=== PATIENT | female | born 1975 | race African-American/Black ===

== ENCOUNTER 2016-09-16 09:12 | Emergency (ER) | payer MEDICAID ==
[2016-09-16] MEDS ORDERED: ONDANSETRON HCL INJ/PF 4 MG/2 ML SDV IV ONE (12:04)
[2016-09-16] MEDS ORDERED: NORMAL SALINE 1000 ML 1,000 ML IV ONE (12:04)
[2016-09-16] MEDS ORDERED: KETOROLAC TROMETHAMINE INJ/PF 30 MG/1 ML SDV IV ONE (12:10)
--- NOTE | 2016-09-16 12:15 | ER Document Report ---
ED General - General Chief Complaint: Abdominal Pain Stated Complaint: STOMACH PAIN Mode of Arrival: Ambulatory Information source: Patient Notes: 41-year-old female presents with complaints of intermittent abdominal pain over the past few weeks. Patient admits to nausea TRAVEL OUTSIDE OF THE [place] IN LAST 30 DAYS: No - HPI Onset: Other Onset/Duration: Intermittent Quality of pain: Achy Severity: Mild Pain Level: 1 Associated symptoms: Nausea Exacerbated by: Denies Relieved by: Denies Similar symptoms previously: Yes Recently seen / treated by doctor: No - Related Data Allergies/Adverse Reactions: milk [Milk] Adverse Reaction (Intermediate, Verified 09/16/16 09:31) lactose intolerant chocolate flavor Adverse Reaction (Verified 09/16/16 09:31) Hives Past Medical History - Social History Smoking Status: Never Smoker Cigarette use (# per day): No Chew tobacco use (# tins/day): No Smoking Education Provided: No Frequency of alcohol use: None Drug Abuse: None Family History: CAD, CVA, DM, Hyperlipidemia, Hypertension, Malignancy, Thyroid Disfunction Patient has suicidal ideation: No Patient has homicidal ideation: No - Past Medical History Cardiac Medical History: Reports: Hx Hypertension - "Its been good lately" Denies: Hx Congestive Heart Failure, Hx Coronary Artery Disease, Hx Heart Attack Pulmonary Medical History: Reports: Hx Asthma - only when Denies: Hx Bronchitis, Hx COPD, Hx Pneumonia Neurological Medical History: Denies: Hx Cerebrovascular Accident, Hx Seizures Endocrine Medical History: Denies: Hx Diabetes Mellitus Type 2 Renal/ Medical History: Denies: Hx Peritoneal Dialysis GI Medical History: Denies: Hx Gastritis, Hx Gastroesophageal Reflux Disease Musculoskeltal Medical History: Reports Hx Arthritis - rheumatoid LEFT hip/knee Skin Medical History: Denies Hx MRSA Psychiatric Medical History: Reports: Hx Depression Infectious Medical History: Denies: Hx MRSA Past Surgical History: Reports: Hx Gynecologic Surgery - ovarian surgery, Hx Hysterectomy, Hx Orthopedic Surgery - right foot - Immunizations Immunizations up to date: Yes Hx Diphtheria, Pertussis, Tetanus Vaccination: No - unsure Review of Systems - Review of Systems Notes: REVIEW OF SYSTEMS: CONSTITUTIONAL : Denies fever, chills, or sweats. Denies recent illness. EENT: Denies eye, ear, throat, or mouth pain or symptoms. Denies nasal or sinus congestion or discharge. Denies throat, tongue, or mouth swelling or difficulty swallowing. CARDIOVASCULAR: Denies chest pain. Denies palpitations or racing or irregular heart beat. Denies ankle edema. RESPIRATORY: Denies cough, cold, or chest congestion. Denies shortness of breath, difficulty breathing, or wheezing. GASTROINTESTINAL: Admits to abdominal pain nausea GENITOURINARY: Denies difficulty urinating, painful urination, burning, frequency, blood in urine, or discharge. FEMALE GENITOURINARY: Denies vaginal bleeding, heavy or abnormal periods, irregular periods. Denies vaginal discharge or odor. MUSCULOSKELETAL: Denies back or neck pain or stiffness. Denies joint pain or swelling. SKIN: Denies rash, lesions or sores. HEMATOLOGIC : Denies easy bruising or bleeding. LYMPHATIC: Denies swollen, enlarged glands. NEUROLOGICAL: Denies confusion or altered mental status. Denies passing out or loss of consciousness. Denies dizziness or lightheadedness. Denies headache. Denies weakness or paralysis or loss of use of either side. Denies problems with gait or speech. Denies sensory loss, numbness, or tingling. Denies seizures. PSYCHIATRIC: Denies anxiety or stress. Denies depression, suicidal ideation, or homicidal ideation. ALL OTHER SYSTEMS REVIEWED AND NEGATIVE. Dictation was performed using [employer] voice recognition software PHYSICAL EXAMINATION: GENERAL: Well-appearing, well-nourished and in no acute distress. HEAD: Atraumatic, normocephalic. EYES: Pupils equal round and reactive to light, extraocular movements intact, conjunctiva are normal. ENT: Nares patent, oropharynx clear without exudates. Moist mucous membranes. NECK: Normal range of motion, supple without lymphadenopathy LUNGS: Breath sounds clear to auscultation bilaterally and equal. No wheezes rales or rhonchi. HEART: Regular rate and rhythm without murmurs ABDOMEN: Soft, tender in the right upper quadrant without guarding or rebound Female : deferred Musculoskeletal: Normal range of motion, no pitting or edema. No cyanosis. NEUROLOGICAL: Cranial nerves grossly intact. Normal speech, normal gait. Normal sensory, motor exams PSYCH: Normal mood, normal affect. SKIN: Warm, Dry, normal turgor, no rashes or lesions noted. Physical Exam - Vital signs Vitals: Temp Pulse Resp BP Pulse Ox 99.0 F 82 16 130/89 H 97 09/16/16 09:31 09/16/16 09:31 09/16/16 09:31 09/16/16 09:31 09/16/16 09:31 Course - Re-evaluation Re-evalutation: 09/16/16 12:15 Patient will be sent for ultrasound lab are pending otherwise well-appearing in no distress 09/16/16 15:22 Ultrasound initially concerning for a thrombus however a CTA was performed which noted no acute abnormality. Patient will be discharged home to follow-up with GI After performing a Medical Screening Examination, I estimate there is LOW risk for ACUTE APPENDICITIS, BOWEL OBSTRUCTION, ACUTE CHOLECYSTITIS, PERFORATED DIVERTICULITIS, INCARCERATED HERNIA, PANCREATITIS, PELVIC INFLAMMATORY DISEASE, PERFORATED ULCER, ECTOPIC , or TUBO-OVARIAN ABSCESS, thus I consider the discharge disposition reasonable. Also, there is no evidence or peritonitis , sepsis, or toxicity. The patient and I have discussed the diagnosis and risks , and we agree with discharging home with close follow-up with the understanding that symptoms and presentations can change. We also discussed returning to the Emergency Department immediately if new or worsening symptoms occur. We have discussed the symptoms which are most concerning (e.g., bloody stool, fever, changing or worsening pain, vomiting) that necessitate immediate return. - Vital Signs Vital signs: Temp Pulse Resp BP Pulse Ox 99.0 F 82 16 130/89 H 97 09/16/16 09:31 09/16/16 09:31 09/16/16 09:31 09/16/16 09:31 09/16/16 09:31 - Laboratory Result Diagrams: 09/16/16 12:30 09/16/16 13:25 Laboratory results interpreted by me: 09/16/16 09/16/16 09/16/16 12:30 13:02 13:25 MCV 75 L MCH 24.0 L MCHC 31.8 L RDW 16.1 H Sodium 147.3 H Urine Urobilinogen 4.0 H - Diagnostic Test Radiology reviewed: Image reviewed, Reports reviewed Discharge - Discharge Clinical Impression: Nausea Abdominal pain Qualifiers: Abdominal location: right upper quadrant Qualified Code(s): R10.11 - Right upper quadrant pain Condition: Stable Disposition: HOME, SELF-CARE Instructions: Abdominal Pain ([facility]) Prescriptions: Hydrocodone/Acetaminophen [[place] 5-325 mg Tablet] 1 tab PO Q6 #10 tablet Ondansetron HCl [Zofran] 8 mg PO Q6 #10 tablet Referrals: NELSON WATTS MD [Primary Care Provider] - Follow up tomorrow
[2016-09-16 13:02] LABS: ABSOLUTE LYMPHOCYTES (AUTO) 2.1 10^3/uL (0.5-4.7); ABSOLUTE MONOCYTES (AUTO) 0.9 10^3/uL (0.1-1.4); ABSOLUTE NEUT (AUTO) 4.9 10^3/uL (1.7-8.2); BASOPHILS % (AUTO) 0.2 % (0-2); EOSINOPHILS % (AUTO) 0.5 % (0-6); HEMATOCRIT 37.6 % (36.0-47.0); HGB HCT DIFFERENCE -1.6; LYMPHOCYTES % (AUTO) 26.8 % (13-45); MEAN CORPUSCULAR HGB CONC 31.8 g/dL (32.0-36.0); MEAN CORPUSCULAR VOLUME 75 fl (80-97); MONOCYTES % (AUTO) 11.4 % (3-13); RED BLOOD COUNT 4.99 10^6/uL (3.72-5.28); RED CELL DISTRIBUTION WIDTH 16.1 % (11.5-14.0); SEGMENTED NEUTROPHILS % (AUTO) 61.1 % (42-78)
[2016-09-16 14:05] LABS: ALANINE AMINOTRANSFERASE 24 U/L (9-52); ALBUMIN 4.1 g/dL (3.5-5.0); ALKALINE PHOSPHATASE 84 U/L (38-126); ANION GAP 15 (5-19); ASPARTATE AMINO TRANSFERASE 21 U/L (14-36); BILIRUBIN,DIRECT 0.2 mg/dL (0.0-0.4); BILIRUBIN,TOTAL 0.5 mg/dL (0.2-1.3); BLOOD UREA NITROGEN 13 mg/dL (7-20); CALCIUM 9.3 mg/dL (8.4-10.2); CARBON DIOXIDE 26 mmol/L (22-30); CHLORIDE 106 mmol/L (98-107); CREATININE RESULT 0.68 mg/dL (0.52-1.25); GLUCOSE 78 mg/dL (75-110); LIPASE 37.3 U/L (23-300); POTASSIUM 4.1 mmol/L (3.6-5.0); SODIUM 147.3 mmol/L (137-145); TOTAL PROTEIN 7.7 g/dL (6.3-8.2)
[2016-09-16 14:47] LABS: APPEARANCE,URINE CLEAR; BILIRUBIN,URINE NEGATIVE (NEGATIVE); GLUCOSE, URINE NEGATIVE (NEGATIVE); KETONES,URINE NEGATIVE (NEGATIVE); LEUKOCYTE ESTERASE,URINE NEGATIVE (NEGATIVE); NITRITE,URINE NEGATIVE (NEGATIVE); PROTEIN,URINE NEGATIVE (NEGATIVE); URINE SPECIFIC GRAVITY 1.017
[2016-09-16 16:05] VITALS: BP 138/81
== END 2016-09-16 15:39 | disposition home or self-care (01) ==
LOC: ER 09:12
DX: R10.11 Right upper quadrant pain (principal); R11.0 Nausea
CPT/HCPCS: 99284; 96374; 96375; 36415; 83690; 85025; 80053; 81001; 76705; 74174; J1885; J2405

== ENCOUNTER 2016-10-30 17:05 | Emergency (ER) | payer MEDICAID ==
[2016-10-30] MEDS ORDERED: TETRACAINE HCL 0.5% OPH SOLN 2 ML OD ONE (18:38)
[2016-10-30] MEDS ORDERED: TETRACAINE HCL 0.5% OPH SOLN 2 ML OS ONE (18:41)
--- NOTE | 2016-10-30 18:49 | ER Document Report ---
HPI - HPI Patient complains to provider of: left eye pain Onset/Duration: Sudden Quality of pain: Achy Pain Level: 3 Context: She presents emergency department with left eye pain. 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 She reports pain when she opens and closes her eye. No drainage. She does not wear contacts. 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 Lives with: Family Family History: CAD, CVA, DM, Hyperlipidemia, Hypertension, Malignancy, Thyroid Disfunction Patient has suicidal ideation: No Patient has homicidal ideation: No - Past Medical History Cardiac Medical History: Reports: Hx Hypertension - "Its been good lately" Denies: Hx Congestive Heart Failure, Hx Coronary Artery Disease, Hx Heart Attack Pulmonary Medical History: Reports: Hx Asthma - only when Denies: Hx Bronchitis, Hx COPD, Hx Pneumonia Neurological Medical History: Denies: Hx Cerebrovascular Accident, Hx Seizures Endocrine Medical History: Denies: Hx Diabetes Mellitus Type 2 Renal/ Medical History: Denies: Hx Peritoneal Dialysis GI Medical History: Denies: Hx Gastritis, Hx Gastroesophageal Reflux Disease Musculoskeltal Medical History: Reports Hx Arthritis - rheumatoid LEFT hip/knee Skin Medical History: Denies Hx MRSA Psychiatric Medical History: Reports: Hx Depression Infectious Medical History: Denies: Hx MRSA Past Surgical History: Reports: Hx Gynecologic Surgery - ovarian surgery, Hx Hysterectomy, Hx Orthopedic Surgery - right foot - Immunizations Immunizations up to date: Yes Hx Diphtheria, Pertussis, Tetanus Vaccination: No - unsure Vertical Provider Document - CONSTITUTIONAL Agree With Documented VS: Yes Exam Limitations: No Limitations General Appearance: WD/WN, No Apparent Distress - Patient playing on her cell phone the entire time I'm talking to her. - INFECTION CONTROL TRAVEL OUTSIDE OF THE [place] IN LAST 30 DAYS: No - HEENT HEENT: Atraumatic, Normocephalic, PERRLA. negative: Conjuctival Injection - NECK Neck: Supple - RESPIRATORY Respiratory: Breath Sounds Normal, No Respiratory Distress O2 Sat by Pulse Oximetry: 100 - CARDIOVASCULAR Cardiovascular: Regular Rate - MUSCULOSKELETAL/EXTREMETIES Musculoskeletal/Extremeties: SHANNAN FRAGA - NEURO Level of Consciousness: Awake, Alert, Appropriate Motor/Sensory: No Motor Deficit - DERM Integumentary: Warm, Dry Course - Re-evaluation Re-evalutation: 10/30/16 18:51 Patient instructed on pending eye exam 10/30/16 19:03 Patient instructed on erythromycin ointment. Patient also instructed to follow up with ophthalmology for recheck. - Vital Signs Vital signs: Temp Pulse Resp BP Pulse Ox 98.3 F 84 16 161/97 H 100 10/30/16 17:08 10/30/16 17:08 10/30/16 17:08 10/30/16 17:08 10/30/16 17:08 Procedures - Eye Procedure Left Eye Irrigated w/ Saline (ccs): 10 Alcaine Drops Administered: Yes - TETRACAINE Fluorescein applied: Left Slit lamp used: No Notes: 10/30/16 19:03 Tetracaine applied to left eye. Patient reports immediate relief of irritation after tetracaine. Discharge - Discharge Clinical Impression: Irritation of left eye, Elevated blood pressure reading Condition: Stable Disposition: HOME, SELF-CARE Instructions: Erythromycin ([facility]) Additional Instructions: *You have been evaluated for left eye irritation *Use eye ointment as prescribed *Tylenol as indicated for pain *Good hand washing- *Follow up with an crab meat processor for recheck within 5 days *Return to ED for worsening condition, changes, needs Monitor your blood pressure. Your blood pressure was elevated today. This may be because you were anxious, in pain or because you need medication. It is important to follow up with your primary care provider for full evaluation. Prescriptions: Erythromycin Base [Erythromycin 0.5% Oph Ointment 3.5 gm] 1 applic OS TID #1 tube Forms: Elevated Blood Pressure Referrals: NELSON WATTS MD [Primary Care Provider] - Follow up in 3-5 days
[2016-10-30 19:38] VITALS: BP 157/98
== END 2016-10-30 19:24 | disposition home or self-care (01) ==
LOC: ER 17:05
DX: H57.12 Ocular pain, left eye (principal); I10 Essential (primary) hypertension; Z90.710 Acquired absence of both cervix and uterus
CPT/HCPCS: 99283

== ENCOUNTER 2017-01-27 20:48 | Emergency (ER) | payer SELFPAY ==
--- NOTE | 2017-01-27 22:32 | ER Document Report ---
ED Hand/Wrist Injury - General Mode of Arrival: Ambulatory Information source: Patient TRAVEL OUTSIDE OF THE [place] 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 Patient states she felt a snap/pop when the injury occurred. Patient denies any previous injury to this finger. Patient has no medical problems and does not take any medications regularly. Patient has not taken any pain medication and does not want any Tylenol or Ibuprofen. PCP Dr. Quinteros ([facility]) - Related Data Allergies/Adverse Reactions: milk [Milk] Adverse Reaction (Intermediate, Verified 10/30/16 17:07) lactose intolerant chocolate flavor Adverse Reaction (Verified 10/30/16 17:07) Hives Past Medical History - General Information source: Patient - Social History Smoking Status: Unknown if Ever Smoked Family History: CAD, CVA, DM, Hyperlipidemia, Hypertension, Malignancy, Thyroid Disfunction Patient has suicidal ideation: No Patient has homicidal ideation: No - Past Medical History Cardiac Medical History: Reports: Hx Hypertension - "Its been good lately" Pulmonary Medical History: Reports: Hx Asthma - only when Musculoskeltal Medical History: Reports Hx Arthritis - rheumatoid LEFT hip/knee Psychiatric Medical History: Reports: Hx Depression Past Surgical History: Reports: Hx Gynecologic Surgery - ovarian surgery, Hx Hysterectomy, Hx Orthopedic Surgery - right foot - Immunizations Immunizations up to date: Yes Hx Diphtheria, Pertussis, Tetanus Vaccination: No - unsure Review of Systems - Review of Systems Constitutional: No symptoms reported EENT: No symptoms reported Cardiovascular: No symptoms reported Respiratory: No symptoms reported Gastrointestinal: No symptoms reported Genitourinary: No symptoms reported Female Genitourinary: No symptoms reported Musculoskeletal: See HPI Skin: No symptoms reported Hematologic/Lymphatic: No symptoms reported Neurological/Psychological: No symptoms reported -: Yes All other systems reviewed and negative Physical Exam - Vital signs Interpretation: Hypertensive - Vital signs Vitals: Temp Pulse Resp BP Pulse Ox 98.5 F 70 18 161/96 H 100 01/27/17 20:55 01/27/17 20:55 01/27/17 20:55 01/27/17 20:55 01/27/17 20:55 - Notes Notes: GENERAL: Alert, interacts well. No acute distress. HEAD: Normocephalic, atraumatic. EYES: Appear normal. Pupils equal, round, and reactive to light. ENT: Moist mucus membranes, tongue midline. NECK: Full range of motion. Supple. Trachea midline. LUNGS: Clear to auscultation bilaterally, no wheezes, rales, or rhonchi. No respiratory distress. HEART: Regular rate and rhythm. No murmurs, gallops, or rubs. ABDOMEN: Soft, non-tender. Non-distended. Normal bowel sounds. EXTREMITIES: Moves all 4 extremities spontaneously. Normal strength. No edema. Pain at the base of the right thumb. Small subungual hematoma which is less than 5% of the right thumb nail bed. Good flexion-extension, motor function is normal, no obvious lacerations or abrasions, no bony tenderness at the wrist, hand, forearm, or elbow. Radial, ulnar, axillary, and median nerve are intact. NEUROLOGICAL: Alert and oriented x3. Normal speech. No focal neurological deficits. GSC 15. PSYCH: Normal affect, normal mood. SKIN: Warm, dry, normal turgor. No rashes or lesions noted. (MEIR GALINDO) Discharge - Discharge Clinical Impression: Acute right thumb sprain Condition: Stable Disposition: HOME, SELF-CARE Additional Instructions: Sprain thumb Your injury is a sprain. A sprain results from stretching or tearing of the ligaments, usually from a twisting injury. The ligaments will require time and protection in order to heal properly. Many sprains are quite disabling and should be taken seriously. The usual initial treatment of sprains is cold packs, elevation, and rest of the injured area. Your physician has assessed the seriousness of your ligament injury, and has outlined a treatment plan. Understand that this treatment may change, depending on how you progress. If a re-examination was recommended, it is important that you follow up as instructed. Call the doctor any time if there is severe pain, numbness, or loss of function in the injured area. Referrals: NELSON QUINTEROS MD [Primary Care Provider] - (Follow-up in 5-7 days ice for 48 hours elevation, Motrin for pain and return for increasing worsening or new symptoms) Scribe Attestation: 01/27/17 23:12 I personally performed the services described in the documentation reviewed the documentation recorded by my scribe in my presence and it accurately and completely records my words and actions (MISTY DEL VALLE) Scribe Documentation - Scribe Written by Scribe:: Candace Tapia 01/27/17 23:19 acting as scribe for :: Oliverio
--- NOTE | 2017-01-27 22:43 | RADIOLOGY REPORT (SQ) ---
EXAM DESCRIPTION: FINGER RIGHT COMPLETED DATE/TIME: 01/27/2017 10:35 pm REASON FOR STUDY: Pain s/p injury COMPARISON: None. NUMBER OF VIEWS: Three views. TECHNIQUE: AP, lateral, and oblique images acquired of the right thumb. LIMITATIONS: None. FINDINGS: MINERALIZATION: Normal. BONES: No acute fracture or dislocation. No worrisome bone lesions. SOFT TISSUES: No soft tissue swelling. No foreign body. OTHER: No other significant finding. IMPRESSION: NO RADIOGRAPHIC EVIDENCE OF ACUTE INJURY. COMMENT: SITE OF TRAUMA/COMPLAINT MARKED/STAMP COMPLETED: NO. TECHNICAL DOCUMENTATION: JOB ID: [id number] [employer]- All Rights Reserved
[2017-01-27 23:52] VITALS: BP 166/98
== END 2017-01-27 23:40 | disposition home or self-care (01) ==
LOC: ER 20:48
DX: S63.601A Unspecified sprain of right thumb, initial encounter (principal); W20.8XXA Other cause of strike by thrown, projected or falling object, initial encounter; Y92.210 Daycare center as the place of occurrence of the external cause; Y99.0 Civilian activity done for income or pay; Z91.011 Allergy to milk products; Z90.710 Acquired absence of both cervix and uterus
CPT/HCPCS: 99283

== ENCOUNTER 2017-03-26 16:26 | Emergency (ER) | payer SELFPAY ==
[2017-03-26 16:52] VITALS: BP 139/97
== END 2017-03-26 18:55 | disposition left against medical advice (07) ==
LOC: ER 16:26
DX: Z53.21 Procedure and treatment not carried out due to patient leaving prior to being seen by health care provider (principal)

== ENCOUNTER 2017-07-14 01:37 | Emergency (ER) | payer MEDICAID ==
[2017-07-14 01:46] VITALS: BP 169/106
--- NOTE | 2017-07-14 02:44 | ER Document Report ---
ED Medical Screen (RME) - General Chief Complaint: Back Pain Stated Complaint: BACK PAIN LEFT FOOT INJURY Time Seen by Provider: 07/14/17 02:38 Notes: Patient is a 41-year-old female comes emergency department for chief complaint of inversion injury to her left foot/ankle. She reports pain and swelling to those areas. She denies any fall, she denies any other injuries. She also states that she frequently has lower back pain, worse with movement, this is been going on for a long time. She normally just takes Tylenol for. She denies abdominal pain, dysuria, urinary frequency. She denies any fevers or chills. She takes no daily medications reportedly. TRAVEL OUTSIDE OF THE [place] IN LAST 30 DAYS: No - Related Data Allergies/Adverse Reactions: milk [Milk] Adverse Reaction (Intermediate, Verified 10/30/16 17:07) lactose intolerant chocolate flavor Adverse Reaction (Verified 10/30/16 17:07) Hives Past Medical History - Past Medical History Cardiac Medical History: Reports: Hx Hypertension - "Its been good lately" Denies: Hx Congestive Heart Failure, Hx Coronary Artery Disease, Hx Heart Attack Pulmonary Medical History: Reports: Hx Asthma - only when Denies: Hx Bronchitis, Hx COPD, Hx Pneumonia Neurological Medical History: Denies: Hx Cerebrovascular Accident, Hx Seizures Endocrine Medical History: Denies: Hx Diabetes Mellitus Type 2 Renal/ Medical History: Denies: Hx Peritoneal Dialysis GI Medical History: Denies: Hx Gastritis, Hx Gastroesophageal Reflux Disease Musculoskeltal Medical History: Reports Hx Arthritis - rheumatoid LEFT hip/knee Skin Medical History: Denies Hx MRSA Psychiatric Medical History: Reports: Hx Depression Infectious Medical History: Denies: Hx MRSA Past Surgical History: Reports: Hx Gynecologic Surgery - ovarian surgery, Hx Hysterectomy, Hx Orthopedic Surgery - right foot - Immunizations Immunizations up to date: Yes Hx Diphtheria, Pertussis, Tetanus Vaccination: No - unsure Physical Exam - Vital signs Vitals: Temp Pulse Resp BP Pulse Ox 98 F 90 16 169/106 H 99 07/14/17 01:40 07/14/17 01:40 07/14/17 01:40 07/14/17 01:40 07/14/17 01:40 - Extremities General lower extremity: Other - Tenderness over the left lateral foot and lateral malleolus, questionable swelling, normal range of motion, capillary refill, normal leg, knee, hip exam otherwise Course - Vital Signs Vital signs: Temp Pulse Resp BP Pulse Ox 98 F 90 16 169/106 H 99 07/14/17 01:40 07/14/17 01:40 07/14/17 01:40 07/14/17 01:40 07/14/17 01:40 Doctor's Discharge - Discharge Disposition: HOME, SELF-CARE
== END 2017-07-14 05:04 | disposition home or self-care (01) ==
LOC: ER 01:37
DX: Z53.21 Procedure and treatment not carried out due to patient leaving prior to being seen by health care provider (principal); S99.922A Unspecified injury of left foot, initial encounter; M54.5 Low back pain; M54.9 Dorsalgia, unspecified; X50.1XXA Overexertion from prolonged static or awkward postures, initial encounter
CPT/HCPCS: 99281; 99283

== ENCOUNTER 2018-01-28 22:05 | Emergency (ER) | payer MEDICAID ==
[2018-01-28 22:14] VITALS: BP 156/91
== END 2018-01-29 00:39 | disposition left against medical advice (07) ==
LOC: ER 22:05
DX: Z53.21 Procedure and treatment not carried out due to patient leaving prior to being seen by health care provider (principal)

== ENCOUNTER 2019-05-02 10:42 | Emergency (ER) | payer MEDICAID ==
[2019-05-02] MEDS ORDERED: BENZONATATE 100 MG CAPSULE PO ONE (12:03)
[2019-05-02] MEDS ORDERED: IPRATROPIUM/ALBUTEROL 0.5-2.5 MG/3 ML AMPUL NEB ONE (12:03)
--- NOTE | 2019-05-02 12:09 | ER Document Report ---
ED Medical Screen (RME) - General Chief Complaint: Abdominal Pain Stated Complaint: COUGH,SORE THROAT Time Seen by Provider: 05/02/19 11:49 Notes: Patient is a 43-year-old female with a history of congestive heart failure presents to emergency department with a chief complaint of cough and abdominal pain. Patient reports she has had a cough for a few weeks. Patient reports she feels like there is phlegm stuck in her throat. Patient reports the phlegm is a grayish color. Patient denies blood in the phlegm. Patient reports she is attempted to use Tylenol Cold and flu without much relief. 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 Patient denies fever. Patient reports she does not smoke cigarettes. Patient also reports having right lower quadrant pain. Patient reports she has had a total hysterectomy to include ovaries. Patient reports that she has had the intermittent right lower quadrant pain for a few months. Patient reports she is concerned about this as the pain started yesterday. Patient denies pain at this time. Patient denies urinary symptoms. Patient reports her last bowel movement was 2 days ago. Patient has blood in the bowel movement. Patient denies nause a, vomiting or diarrhea. TRAVEL OUTSIDE OF THE [place] IN LAST 30 DAYS: No - Related Data Allergies/Adverse Reactions: milk [Milk] Adverse Reaction (Intermediate, Verified 10/30/16 17:07) lactose intolerant chocolate flavor Adverse Reaction (Verified 10/30/16 17:07) Hives Past Medical History - Social History Frequency of alcohol use: None Drug Abuse: None - Past Medical History Cardiac Medical History: Reports: Hx Congestive Heart Failure, Hx Hypertension - "Its been good lately" Denies: Hx Coronary Artery Disease, Hx Heart Attack Pulmonary Medical History: Reports: Hx Asthma - only when Denies: Hx Bronchitis, Hx COPD, Hx Pneumonia Neurological Medical History: Denies: Hx Cerebrovascular Accident, Hx Seizures Endocrine Medical History: Denies: Hx Diabetes Mellitus Type 2 Renal/ Medical History: Denies: Hx Peritoneal Dialysis GI Medical History: Denies: Hx Gastritis, Hx Gastroesophageal Reflux Disease Musculoskeltal Medical History: Reports Hx Arthritis - rheumatoid LEFT hip/knee Skin Medical History: Denies Hx MRSA Psychiatric Medical History: Reports: Hx Depression Infectious Medical History: Denies: Hx MRSA Past Surgical History: Reports: Hx Gynecologic Surgery - ovarian surgery, Hx Hysterectomy, Hx Orthopedic Surgery - right foot - Immunizations Immunizations up to date: Yes Hx Diphtheria, Pertussis, Tetanus Vaccination: No - unsure Physical Exam - Vital signs Vitals: Temp Pulse Resp BP Pulse Ox 99.1 F 101 H 20 153/89 H 98 05/02/19 10:49 05/02/19 10:49 05/02/19 10:49 05/02/19 10:49 05/02/19 10:49 - Abdominal Inspection: Normal Distension: No distension Bowel sounds: Normal Tenderness: Nontender Organomegaly: No organomegaly Course - Re-evaluation Re-evalutation: 05/02/19 12:08 We will obtain a chest x-ray to rule out pneumonia as the patient reports having a productive cough for 2 weeks. Patient's symptoms are most likely consistent with upper respiratory infection and laryngitis. Patient also concerned with right lower quadrant pain. Will obtain basic labs and a urinalysis. Patient will require a thorough abdominal examination when in a room. I have greeted and performed a rapid initial assessment of this patient. A comprehensive ED assessment and evaluation of the patient, analysis of test results and completion of the medical decision making process will be conducted by additional ED providers. - Vital Signs Vital signs: Temp Pulse Resp BP Pulse Ox 99.1 F 101 H 20 153/89 H 98 05/02/19 10:49 05/02/19 10:49 05/02/19 10:49 05/02/19 10:49 05/02/19 10:49
[2019-05-02 12:54] LABS: ABSOLUTE BASOPHILS # (AUTO) 0.1 10^3/uL (0.0-0.2); ABSOLUTE EOSINOPHILS # (AUTO) 0.1 10^3/uL (0.0-0.6); ABSOLUTE MONOCYTES (AUTO) 0.7 10^3/uL (0.1-1.4); ABSOLUTE NEUT (AUTO) 5.3 10^3/uL (1.7-8.2); BASOPHILS % (AUTO) 0.7 % (0-2); EOSINOPHILS % (AUTO) 1.8 % (0-6); HEMATOCRIT 37.7 % (36.0-47.0); HEMOGLOBIN 12.1 g/dL (12.0-15.5); LYMPHOCYTES % (AUTO) 24.3 % (13-45); MEAN CORPUSCULAR HEMOGLOBIN 24.8 pg (27.0-33.4); MEAN CORPUSCULAR HGB CONC 32.2 g/dL (32.0-36.0); MEAN CORPUSCULAR VOLUME 77 fl (80-97); MONOCYTES % (AUTO) 8.7 % (3-13); PLATELET COUNT 315 10^3/uL (150-450); RED BLOOD COUNT 4.89 10^6/uL (3.72-5.28); RED CELL DISTRIBUTION WIDTH 15.3 % (11.5-14.0); SEGMENTED NEUTROPHILS % (AUTO) 64.5 % (42-78); TOTAL CELLS COUNTED % (AUTO) 100 %; WHITE BLOOD COUNT 8.1 10^3/uL (4.0-10.5)
[2019-05-02 13:08] LABS: ALBUMIN 4.5 g/dL (3.5-5.0); ALKALINE PHOSPHATASE 76 U/L (38-126); ANION GAP 9 (5-19); ASPARTATE AMINO TRANSFERASE 19 U/L (14-36); BILIRUBIN,DIRECT 0.1 mg/dL (0.0-0.4); BILIRUBIN,TOTAL 0.5 mg/dL (0.2-1.3); BLOOD UREA NITROGEN 14 mg/dL (7-20); CALCIUM 9.8 mg/dL (8.4-10.2); CARBON DIOXIDE 31 mmol/L (22-30); CHLORIDE 103 mmol/L (98-107); GLUCOSE 76 mg/dL (75-110); POTASSIUM 4.5 mmol/L (3.6-5.0); TOTAL PROTEIN 8.6 g/dL (6.3-8.2)
[2019-05-02 13:16] LABS: APPEARANCE,URINE CLEAR; BILIRUBIN,URINE NEGATIVE (NEGATIVE); COLOR,URINE YELLOW; GLUCOSE, URINE NEGATIVE (NEGATIVE); KETONES,URINE NEGATIVE (NEGATIVE); LEUKOCYTE ESTERASE,URINE NEGATIVE (NEGATIVE); NITRITE,URINE NEGATIVE (NEGATIVE); PROTEIN,URINE NEGATIVE (NEGATIVE); URINE SPECIFIC GRAVITY 1.012; UROBILINOGEN,URINE NEGATIVE mg/dL (<2.0)
--- NOTE | 2019-05-02 13:38 | RADIOLOGY REPORT (SQ) ---
EXAM DESCRIPTION: CHEST 2 VIEWS COMPLETED DATE/TIME: 05/02/2019 1:29 pm REASON FOR STUDY: productive cough x 2 weeks COMPARISON: 04/25/2015 EXAM PARAMETERS: NUMBER OF VIEWS: two views TECHNIQUE: Digital Frontal and Lateral radiographic views of the chest acquired. RADIATION DOSE: NA LIMITATIONS: none FINDINGS: LUNGS AND PLEURA: No opacities, masses or pneumothorax. No pleural effusion. MEDIASTINUM AND HILAR STRUCTURES: No masses or contour abnormalities. HEART AND VASCULAR STRUCTURES: Enlarged cardiac silhouette, stable. BONES: No acute findings. HARDWARE: None in the chest. OTHER: No other significant finding. IMPRESSION: Stable enlarged cardiac silhouette without evidence of focal consolidation or other acut e intrathoracic process. TECHNICAL DOCUMENTATION: JOB ID: [id number] [employer]- All Rights Reserved Reading location - IP/workstation name: [email or web address]
--- NOTE | 2019-05-02 15:58 | ER Document Report ---
ED General - General Chief Complaint: Abdominal Pain Stated Complaint: COUGH,SORE THROAT Time Seen by Provider: 05/02/19 11:49 Notes: 43-year-old female with a history of congestive heart failure presents to emergency department with a chief complaint of cough and abdominal pain. Patient reports she has had a cough for a few weeks. Patient reports she feels like there is phlegm stuck in her throat. Patient reports the phlegm is a grayish color. Patient denies blood in the phlegm. Patient reports she is attempted to use Tylenol Cold and flu without much relief. 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 Patient denies fever. Patient reports she does not smoke cigarettes. Patient also reports having right lower quadrant pain. Patient reports she has had a total hysterectomy to include ovaries. Patient reports that she has had the intermittent right lower quadrant pain for a few months. Patient reports she is concerned about this as the pain started yesterday. Patient denies pain at this time. Patient denies urinary symptoms. Patient reports her last bowel movement was 2 days ago. Patient has blood in the bowel movement. Patient denies nausea, vomiting or diarrhea. TRAVEL OUTSIDE OF THE [place] IN LAST 30 DAYS: No - Related Data Allergies/Adverse Reactions: milk [Milk] Adverse Reaction (Intermediate, Verified 10/30/16 17:07) lactose intolerant chocolate flavor Adverse Reaction (Verified 10/30/16 17:07) Hives Past Medical History - Social History Smoking Status: Never Smoker Frequency of alcohol use: None Drug Abuse: None Family History: CAD, CVA, DM, Hyperlipidemia, Hypertension, Malignancy, Thyroid Disfunction Patient has suicidal ideation: No Patient has homicidal ideation: No - Past Medical History Cardiac Medical History: Reports: Hx Congestive Heart Failure, Hx Hypertension - "Its been good lately" Denies: Hx Coronary Artery Disease, Hx Heart Attack Pulmonary Medical History: Reports: Hx Asthma - only when Denies: Hx Bronchitis, Hx COPD, Hx Pneumonia Neurological Medical History: Denies: Hx Cerebrovascular Accident, Hx Seizures Endocrine Medical History: Denies: Hx Diabetes Mellitus Type 2 Renal/ Medical History: Denies: Hx Peritoneal Dialysis GI Medical History: Denies: Hx Gastritis, Hx Gastroesophageal Reflux Disease Musculoskeletal Medical History: Reports Hx Arthritis - rheumatoid LEFT hip/knee Skin Medical History: Denies Hx MRSA Psychiatric Medical History: Reports: Hx Depression Infectious Medical History: Denies: Hx MRSA Past Surgical History: Reports: Hx Gynecologic Surgery - ovarian surgery, Hx Hysterectomy, Hx Orthopedic Surgery - right foot - Immunizations Immunizations up to date: Yes Hx Diphtheria, Pertussis, Tetanus Vaccination: No - unsure Review of Systems - Review of Systems Constitutional: See HPI EENT: See HPI Cardiovascular: See HPI Respiratory: See HPI Gastrointestinal: See HPI Genitourinary: No symptoms reported Female Genitourinary: No symptoms reported Musculoskeletal: No symptoms reported Skin: No symptoms reported Hematologic/Lymphatic: No symptoms reported Neurological/Psychological: No symptoms reported Physical Exam - Vital signs Vitals: Temp Pulse Resp BP Pulse Ox 99.1 F 101 H 20 153/89 H 98 05/02/19 10:49 05/02/19 10:49 05/02/19 10:49 05/02/19 10:49 05/02/19 10:49 - Notes Notes: PHYSICAL EXAMINATION: Reviewed vital signs and charting by RN GENERAL: Alert, interacts well. Mild distress HEAD: Normocephalic, atraumatic. EYES: Pupils equal and round. Extraocular movements intact. ENT: Oral mucosa moist, tongue midline. NECK: Full range of motion. Trachea midline. LUNGS: Clear to auscultation bilaterally, no wheezes, rales, or rhonchi. No respiratory distress. HEART: Regular rate and rhythm. No murmur ABDOMEN: soft, non-tender. No distention. Bowel sounds present EXTREMITIES: Moves all 4 extremities spontaneously. No edema, No cyanosis. PSYCH: Normal affect, normal mood. SKIN: Warm, dry, normal turgor. No rashes or lesions noted. Course - Re-evaluation Re-evalutation: 05/02/19 15:55 Mildly ill-appearing. Patient is still coughing persistently in the room. Lab work all within normal limits but I did add a BNP. Her lungs are clear to auscultation in all chavez. Chest x-ray did not show any evidence of focal infiltrate to be concern for pneumonia. Most likely represents bronchitis. Plan is to give her a dose of prednisone here in the emergency department and send her home on a 5-day course. I am also going to give her a prescription for Hycodan. At this point she is stable for discharge. - Vital Signs Vital signs: Temp Pulse Resp BP Pulse Ox 99.1 F 101 H 20 153/89 H 98 05/02/19 10:49 05/02/19 10:49 05/02/19 10:49 05/02/19 10:49 05/02/19 10:49 - Laboratory Result Diagrams: 05/02/19 12:11 05/02/19 12:11 Laboratory results interpreted by me: 05/02/19 05/02/19 12:11 12:11 MCV 77 L MCH 24.8 L RDW 15.3 H Carbon Dioxide 31 H Total Protein 8.6 H Discharge - Discharge Clinical Impression: Cough Chest pain Qualifiers: Chest pain type: other chest pain Qualified Code(s): R07.89 - Other chest pain; R07.8 - Other chest pain Upper respiratory infection Qualifiers: URI type: unspecified URI Qualified Code(s): J06.9 - Acute upper respiratory infection, unspecified Condition: Good Disposition: HOME, SELF-CARE Instructions: Upper Respiratory Illness ([facility]) Additional Instructions: You have been seen and treated in the emergency department for an upper respiratory infection. These are typically caused by viruses and do not respond to antibiotics. Please make sure you using any prescription medications as prescribed. Please also continue to take [id number] Tylenol and Motrin for your generalized body aches, fever. Please stay well-hydrated and get plenty of rest. Please follow-up with your primary care provider in the next 24 to 48 hours. Please return to the emergency room should you have any other con cerning symptoms. Prescriptions: Hydrocodone Bit/Homatropine [Hycodan Syrup 5-1.5 mg/5 ml Ud Cup] 5 ml PO Q4HP PRN #120 ml PRN Reason: Prednisone [Deltasone 20 mg Tablet] 3 tab PO DAILY 5 Days tablet Forms: Return to Work
[2019-05-02 16:28] VITALS: BP 160/97
== END 2019-05-02 16:27 | disposition home or self-care (01) ==
LOC: ER 10:42
DX: J06.9 Acute upper respiratory infection, unspecified (principal); R05 Cough; R10.31 Right lower quadrant pain; I10 Essential (primary) hypertension; R07.9 Chest pain, unspecified; Z90.710 Acquired absence of both cervix and uterus; Z90.722 Acquired absence of ovaries, bilateral
CPT/HCPCS: 36415; 85025; 80053; 81001; 83880; 71046; J3490; J7620; 94640; 99283

== ENCOUNTER 2019-07-17 13:57 | Emergency (ER) | payer SELFPAY ==
[2019-07-17] MEDS ORDERED: KETOROLAC TROMETHAMINE 60 MG/2 ML SDV IM ONE (15:27)
--- NOTE | 2019-07-17 15:27 | ER Document Report ---
ED General - General Chief Complaint: Neck and Upper Back Pain Stated Complaint: BACK/LEG PAIN Time Seen by Provider: 07/17/19 15:10 Primary Care Provider: [facility] [Provider Group] - Follow up in 1 week TRAVEL OUTSIDE OF THE [place] IN LAST 30 DAYS: No - HPI Notes: 43-year-old female to the emergency department with complaints of right thoracic pain that began last night and has gotten worse since then. As well as right posterior leg pain has been ongoing for about 1 month. She states that her leg is very tender and that occasionally the lower leg will swell. She is not on any oral contraceptives or hormone replacement therapy. She denies any fevers or chills. She denies any falls. She denies any new exercises. She denies any bladder or bowel incontinence, saddle paresthesia, radiculopathy, urinary retention, fevers, IV drug abuse. Patient states that there is one specific area on her back that is very tender to palpation and slightly red and swollen. She has never had shingles before. - Related Data Allergies/Adverse Reactions: milk [Milk] Adverse Reaction (Intermediate, Verified 10/30/16 17:07) lactose intolerant chocolate flavor Adverse Reaction (Verified 10/30/16 17:07) Hives Past Medical History - General Information source: Patient - Social History Smoking Status: Never Smoker Frequency of alcohol use: None Drug Abuse: None Family History: CAD, CVA, DM, Hyperlipidemia, Hypertension, Malignancy, Thyroid Disfunction Patient has suicidal ideation: No Patient has homicidal ideation: No - Past Medical History Cardiac Medical History: Reports: Hx Congestive Heart Failure, Hx Hypertension - "Its been good lately" Denies: Hx Coronary Artery Disease, Hx Heart Attack Pulmonary Medical History: Reports: Hx Asthma - only when Denies: Hx Bronchitis, Hx COPD, Hx Pneumonia Neurological Medical History: Denies: Hx Cerebrovascular Accident, Hx Seizures Endocrine Medical History: Denies: Hx Diabetes Mellitus Type 2 Renal/ Medical History: Denies: Hx Peritoneal Dialysis GI Medical History: Denies: Hx Gastritis, Hx Gastroesophageal Reflux Disease Musculoskeletal Medical History: Reports Hx Arthritis - rheumatoid LEFT hip/knee Skin Medical History: Denies Hx MRSA Psychiatric Medical History: Reports: Hx Depression Infectious Medical History: Denies: Hx MRSA Past Surgical History: Reports: Hx Gynecologic Surgery - ovarian surgery, Hx Hysterectomy, Hx Orthopedic Surgery - right foot - Immunizations Immunizations up to date: Yes Hx Diphtheria, Pertussis, Tetanus Vaccination: No - unsure Review of Systems - Review of Systems Constitutional: denies: Chills, Fever EENT: No symptoms reported Cardiovascular: denies: Chest pain, Palpitations, Heart racing, Dyspnea, Syncope, Dizziness Gastrointestinal: denies: Abdominal pain, Diarrhea, Nausea, Vomiting Genitourinary: No symptoms reported Musculoskeletal: See HPI, Back pain, Joint pain Skin: No symptoms reported Hematologic/Lymphatic: No symptoms reported Neurological/Psychological: No symptoms reported -: Yes All other systems reviewed and negative Physical Exam - Vital signs Vitals: Temp Pulse Resp BP Pulse Ox 97.9 F 89 18 164/84 H 100 07/17/19 14:27 07/17/19 14:27 07/17/19 14:27 07/17/19 14:27 07/17/19 14:27 Interpretation: Normal - General General appearance: Appears well, Alert - HEENT Head: Normocephalic, Atraumatic Eyes: Normal Pupils: PERRL - Respiratory Respiratory status: No respiratory distress Chest status: Nontender Breath sounds: Normal Chest palpation: Normal - Cardiovascular Rhythm: Regular Heart sounds: Normal auscultation Murmur: No - Abdominal Inspection: Normal Distension: No distension Bowel sounds: Normal Tenderness: Nontender Organomegaly: No organomegaly - Back Back: Tender - Tenderness to palpation over the right side of the back. In the midline thoracic spine. There is mild edema but no evidence for rash there. No step-off or deformity. No CVA tenderness. Straight leg raise is negative bilaterally, Vertebra tenderness - Extremities Notes: There is tenderness to palpation over the right hip and posterior right thigh as well as mild tenderness to palpation over the right posterior calf. There is no edema or erythema to the leg. Patient has increased pain with flexion of the hip and knee but can ambulate without any assistance. - Neurological Neuro grossly intact: Yes Cognition: Normal Orientation: AAOx4 Tracey Coma Scale Eye Opening: Spontaneous Tracey Coma Scale Verbal: Oriented [place] Coma Scale Motor: Obeys Commands Tracey Coma Scale Total: 15 Speech: Normal Cranial nerves: Normal Cerebellar coordination: Normal. No: Gait ataxia Motor strength normal: LUE, RUE, LLE, RLE Additional motor exam normals: Equal coat maker. No: Pronator drift Sensory: Normal - Psychological Associated symptoms: Normal affect, Normal mood - Skin Skin Temperature: Warm Skin Moisture: Dry Skin Color: Normal Skin irregularity: negative: Rash Course - Re-evaluation Re-evalutation: Impression: Thoracic back pain. She has focal point tenderness which makes me wonder if she is going to develop a rash like shingles there. We will go ahead and start her on steroids. Have advised her that this potentially could be prodrome for shingles on her back and gave her Valtrex in case the rash develops. As for her leg she has no clot in it. Suspect that this is an IT band muscular skeletal issue in her leg. Will send home with muscle relaxants and pain meds - Vital Signs Vital signs: Temp Pulse Resp BP Pulse Ox 98.2 F 86 16 154/94 H 99 07/17/19 17:03 07/17/19 17:03 07/17/19 17:03 07/17/19 17:03 07/17/19 17:03 Discharge - Discharge Clinical Impression: Right leg pain Acute thoracic back pain Qualifiers: Back pain laterality: right Qualified Code(s): M54.6 - Pain in thoracic spine Condition: Stable Disposition: HOME, SELF-CARE Instructions: Myalagia (Muscle Pain) ([facility]), Shingles ([facility]) Additional Instructions: monitor your right back for any rash in the coming days. If rash starts, start antivirals. Return if worsening symptoms. Push fluids. follow up with primary care. Prescriptions: Methylprednisolone [Medrol Dosepack (4 mg/Tab) 21 Tab/Dosepak] 4 mg PO ASDIR PRN #21 tab.ds.pk PRN Reason: Hydrocodone/Acetaminophen [Erie 5-325 mg Tablet] 1 tab PO Q6H #9 tablet Methocarbamol [Robaxin 500 mg Tablet] 500 mg PO QID PRN #20 tablet PRN Reason: Valacyclovir HCl [Valtrex 500 Mg Tablet] 1,000 mg PO TID #60 tablet Referrals: [facility] [Provider Group] - Follow up in 1 week
[2019-07-17 17:04] VITALS: BP 154/94
--- NOTE | 2019-07-17 17:16 | RADIOLOGY REPORT (SQ) ---
EXAM DESCRIPTION: T SPINE AP/LAT COMPLETED DATE/TIME: 07/17/2019 3:47 pm REASON FOR STUDY: thoracic back pain COMPARISON: None. NUMBER OF VIEWS: Two views. TECHNIQUE: AP and lateral radiographic images acquired of the thoracic spine. LIMITATIONS: None. FINDINGS: MINERALIZATION: Normal. ALIGNMENT: Normal. No scoliosis. VERTEBRAE: No fracture or bone lesion. Maintained height, normal segmentation. DISCS: No significant loss of height or significant narrowing. No large osteophytes. HARDWARE: None in the spine. MEDIASTINUM AND SOFT TISSUES: Normal heart size and aortic contour. No soft tissue abnormality. VISUALIZED LUNG SALVADOR: Clear. OTHER: No other significant finding. IMPRESSION: NO SIGNIFICANT RADIOGRAPHIC FINDING IN THE THORACIC SPINE. TECHNICAL DOCUMENTATION: JOB ID: [id number] [employer]- All Rights Reserved Reading location - IP/workstation name: [email or web address]
--- NOTE | 2019-07-17 17:17 | RADIOLOGY REPORT (SQ) ---
EXAM DESCRIPTION: HIP RIGHT AP/LATERAL COMPLETED DATE/TIME: 07/17/2019 4:47 pm REASON FOR STUDY: right hip pain COMPARISON: None. NUMBER OF VIEWS: Two views. TECHNIQUE: AP pelvis and additional frog-leg view of the right hip. LIMITATIONS: None. FINDINGS: MINERALIZATION: Normal. RIGHT HIP: No fracture or dislocation. No worrisome bone lesions. LEFT HIP: No fracture or dislocation. No worrisome bone lesions. PUBIS AND ISCHIUM: No fracture. PELVIS: No fracture. SACRUM: No fracture or dislocation. No worrisome bone lesions. LOWER LUMBAR SPINE: No fracture or dislocation. No worrisome bone lesions. No significant disc disea se. SOFT TISSUES: No findings. OTHER: Right pelvic surgical clip. IMPRESSION: No acute osseous abnormality of the right hip. TECHNICAL DOCUMENTATION: JOB ID: [id number] [employer]- All Rights Reserved Reading location - IP/workstation name: [email or web address]
--- NOTE | 2019-07-18 08:42 | XCELERA REPORT ---
[address] [facility] [place] [address] Lower Extremity Venous Evaluation Procedure: Color flow and duplex imaging of the veins of the right lower extremity as well as the left Common Femoral vein. Right Sided Venous Evaluation Normal vessel filling wall to wall, compression and augmentation as well as Colour flow down to the infrageniculate veins. Left Sided Venous Evaluation The left common femoral vein is fully compressible. Spontaneous and phasic flow is present in the left common femoral vein. Interpretation Summary No duplex evidence of DVT or obstruction in the right lower extremity nor in the left Common Femoral vein. Name: LATONIA IBANEZ Age: 43 yrs Gender: Female : 1975 Patient Status: Preadmit Patient Location: ER Study Date: 07/17/2019 04:30 PM Reason For Study: right posterior leg pain, ankle swelling Ordering Physician: FEDERICO GARCIA Performed By: Arturo Barros : FEDERICO GARCIA > Meliton Gracia
== END 2019-07-17 17:15 | disposition home or self-care (01) ==
LOC: ER 13:57
DX: M54.6 Pain in thoracic spine (principal); M79.604 Pain in right leg; M25.50 Pain in unspecified joint; R60.0 Localized edema; I10 Essential (primary) hypertension
CPT/HCPCS: 99283; 96372; 93971 ×2; 73502; 72070; J1885

== ENCOUNTER 2019-08-19 22:34 | Emergency (ER) | payer OTHER ==
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
[2019-08-20] MEDS ORDERED: METHOCARBAMOL 500 MG TABLET PO ONE (00:16)
[2019-08-20] MEDS ORDERED: ACETAMINOPHEN 325 MG TABLET PO ONE (00:17)
[2019-08-20 01:39] VITALS: BP 142/84
== END 2019-08-20 00:20 | disposition home or self-care (01) ==
LOC: ER 22:34
DX: R51 Headache (principal); M54.2 Cervicalgia; M54.5 Low back pain; V89.2XXA Person injured in unspecified motor-vehicle accident, traffic, initial encounter; I50.9 Heart failure, unspecified; I11.0 Hypertensive heart disease with heart failure; Z91.011 Allergy to milk products; Z90.710 Acquired absence of both cervix and uterus
CPT/HCPCS: 99283

== ENCOUNTER 2020-03-07 21:55 | Emergency (ER) | payer SELFPAY ==
--- NOTE | 2020-03-07 22:44 | ER Document Report ---
ED Medical Screen (RME) - General Chief Complaint: Chest Pain Stated Complaint: CHEST PAIN Time Seen by Provider: 03/07/20 22:41 Notes: Patient is a 44-year-old female with a history of congestive heart failure presents emergency department with a chief complaint of chest pain. Patient reports around 2 PM this afternoon she was in the line of her daughter when she developed left-sided chest pain. Patient reports this is intermittent and r adiates to the left shoulder and arm. TRAVEL OUTSIDE OF THE [place] IN LAST 30 DAYS: No - Related Data Allergies/Adverse Reactions: milk [Milk] Adverse Reaction (Intermediate, Verified 03/07/20 22:30) lactose intolerant chocolate flavor Adverse Reaction (Verified 03/07/20 22:30) Hives Past Medical History - Social History Frequency of alcohol use: None Drug Abuse: None - Past Medical History Cardiac Medical History: Reports: Hx Congestive Heart Failure, Hx Hypertension - "Its been good lately" Denies: Hx Coronary Artery Disease, Hx Heart Attack Pulmonary Medical History: Reports: Hx Asthma - only when Denies: Hx Bronchitis, Hx COPD, Hx Pneumonia Neurological Medical History: Denies: Hx Cerebrovascular Accident, Hx Seizures Endocrine Medical History: Denies: Hx Diabetes Mellitus Type 2 Renal/ Medical History: Denies: Hx Peritoneal Dialysis GI Medical History: Denies: Hx Gastritis, Hx Gastroesophageal Reflux Disease Musculoskeltal Medical History: Reports Hx Arthritis - rheumatoid LEFT hip/knee Skin Medical History: Denies Hx MRSA Psychiatric Medical History: Reports: Hx Depression Infectious Medical History: Denies: Hx MRSA Past Surgical History: Reports: Hx Gynecologic Surgery - ovarian surgery, Hx Hysterectomy, Hx Orthopedic Surgery - right foot - Immunizations Immunizations up to date: Yes Hx Diphtheria, Pertussis, Tetanus Vaccination: No - unsure Physical Exam - Vital signs Vitals: Temp Pulse Resp BP Pulse Ox 98.0 F 74 16 146/100 H 99 03/07/20 22:29 03/07/20 22:29 03/07/20 22:29 03/07/20 22:29 03/07/20 22:29 - Cardiovascular Rhythm: Regular Heart sounds: Normal auscultation, S1 appreciated, S2 appreciated Course - Re-evaluation Re-evalutation: 03/07/20 22:43 I initiate basic labs. Patient no acute distress. I have greeted and performed a rapid initial assessment of this patient. A comprehensive ED assessment and evaluation of the patient, analysis of test results and completion of the medical decision making process will be conducted by additional ED providers. - Vital Signs Vital signs: Temp Pulse Resp BP Pulse Ox 98.0 F 74 16 146/100 H 99 03/07/20 22:29 03/07/20 22:29 03/07/20 22:29 03/07/20 22:29 03/07/20 22:29
--- NOTE | 2020-03-07 23:34 | RADIOLOGY REPORT (SQ) ---
EXAM DESCRIPTION: [facility]: XR CHEST 2 VIEWS Views: 2 CLINICAL HISTORY: 44 years Female; chest pain; COMPARISON: 04/25/2015 FINDINGS: Lungs: Lungs are clear, with no focal infiltrate, pneumothorax, or pleural effusion. Mediastinum: Mediastinum is within normal limits for this positioning. Bones: Bony structures are unremarkable. IMPRESSION: 1. No acute cardiothoracic abnormality.
[2020-03-08 01:32] VITALS: BP 174/107
--- NOTE | 2020-03-08 09:19 | EKG REPORT ---
SEVERITY:- BORDERLINE ECG - SINUS RHYTHM LVH BY VOLTAGE : Confirmed by: Braulio Méndez 08-Mar-2020 09:17:49
== END 2020-03-08 02:00 | disposition left against medical advice (07) ==
LOC: ER 21:55
DX: R07.9 Chest pain, unspecified (principal); I50.9 Heart failure, unspecified; I11.0 Hypertensive heart disease with heart failure
CPT/HCPCS: 71046; 93005; 93010; 99281

== ENCOUNTER 2020-03-31 21:06 | Emergency (ER) | payer SELFPAY ==
[2020-03-31] MEDS ORDERED: METHYLPREDNISOLONE INJ 125 MG/2 ML SDV IM ONE (21:27)
[2020-03-31] MEDS ORDERED: KETOROLAC TROMETHAMINE 60 MG/2 ML SDV IM ONE (21:27)
[2020-03-31] MEDS ORDERED: CYCLOBENZAPRINE HCL 10 MG TABLET PO ONE (21:27)
--- NOTE | 2020-03-31 21:45 | ER Document Report ---
ED Medical Screen (RME) - General Chief Complaint: Leg Pain Stated Complaint: POSSIBLE ALLERGY Time Seen by Provider: 03/31/20 21:23 Mode of Arrival: Ambulatory Information source: Patient Notes: HPI; 44-year-old female presents emergency room complaining of pain that radiates from her left buttock down her entire left leg for the past week. She denies any trauma or injury. States she been taking Aleve without relief. Last dose was around 5 PM tonight. States she has a history of a torn disc in her back but denies any recent trauma or injury to her back. She denies any loss of control of bowels or bladder. No saddle anesthesia. No red flags. PE: Alert and oriented x3. Mild distress noted. Lungs: Clear to auscultation without rales, rhonchi, wheezes. Heart: Regular rate rhythm without murmurs, rubs, gallops. Patient with tenderness on palpation from L3-S1. There is tenderness over the bilateral sciatic notches. Patient is negative straight leg raising bilaterally. She is ambulatory with a steady gait. She is neurovascularly intact. Patient noted to be playing on her phone during the entire triage. I have greeted and performed a rapid initial assessment of this patient. A comprehensive ED assessment and evaluation of the patient, analysis of test results and completion of the medical decision making process will be conducted by additional ED providers. I have specifically instructed the patient or family members with the patient to immediately return to any nursing staff should anything change in the patient's condition or with their chief complaint. TRAVEL OUTSIDE OF THE [place] IN LAST 30 DAYS: No - Related Data Allergies/Adverse Reactions: milk [Milk] Adverse Reaction (Intermediate, Verified 03/07/20 22:30) lactose intolerant chocolate flavor Adverse Reaction (Verified 03/07/20 22:30) Hives Past Medical History - Social History Chew tobacco use (# tins/day): No Frequency of alcohol use: None Drug Abuse: None - Past Medical History Cardiac Medical History: Reports: Hx Congestive Heart Failure, Hx Hypertension - "Its been good lately" Denies: Hx Coronary Artery Disease, Hx Heart Attack Pulmonary Medical History: Reports: Hx Asthma - only when Denies: Hx Bronchitis, Hx COPD, Hx Pneumonia Neurological Medical History: Denies: Hx Cerebrovascular Accident, Hx Seizures Endocrine Medical History: Denies: Hx Diabetes Mellitus Type 2 Renal/ Medical History: Denies: Hx Peritoneal Dialysis GI Medical History: Denies: Hx Gastritis, Hx Gastroesophageal Reflux Disease Musculoskeltal Medical History: Reports Hx Arthritis - rheumatoid LEFT hip/knee Skin Medical History: Denies Hx MRSA Psychiatric Medical History: Reports: Hx Depression Infectious Medical History: Denies: Hx MRSA Past Surgical History: Reports: Hx Gynecologic Surgery - ovarian surgery, Hx Hysterectomy, Hx Orthopedic Surgery - right foot - Immunizations Immunizations up to date: Yes Hx Diphtheria, Pertussis, Tetanus Vaccination: No - unsure Physical Exam - Vital signs Vitals: Temp Pulse Resp BP Pulse Ox 98.5 F 97 16 157/96 H 99 03/31/20 21:10 03/31/20 21:10 03/31/20 21:10 03/31/20 21:10 03/31/20 21:10 Course - Vital Signs Vital signs: Temp Pulse Resp BP Pulse Ox 98.5 F 97 16 157/96 H 99 03/31/20 21:24 03/31/20 21:10 03/31/20 21:10 03/31/20 21:10 03/31/20 21:10
--- NOTE | 2020-03-31 22:08 | ER Document Report ---
ED General - General Chief Complaint: Leg Pain Stated Complaint: POSSIBLE ALLERGY Time Seen by Provider: 03/31/20 21:23 Mode of Arrival: Ambulatory Notes: Patient is a 44-year-old -[place] female with a past medical history of sciatica who presents to the emergency department with a chief complaint of left leg pain for the past week. She states it came out of nowhere were lying in bed she attempted to roll over and felt a sudden pain. She states the pain originates in the left anterior/anterior lateral hip and radiates down the front thigh to the medial knee. States that she at rest feels pain globally around the entire thigh up to about mid calf. She denies any injury, trauma or fall. Denies any numbness tingling or weakness. No buttock pain or associated back discomfort. No saddle anesthesia. No urinary or bowel incontinence or retention. TRAVEL OUTSIDE OF THE [place] IN LAST 30 DAYS: No - Related Data Allergies/Adverse Reactions: milk [Milk] Adverse Reaction (Intermediate, Verified 03/07/20 22:30) lactose intolerant chocolate flavor Adverse Reaction (Verified 03/07/20 22:30) Hives Past Medical History - General Information source: Patient - Social History Smoking Status: Former Smoker Chew tobacco use (# tins/day): No Frequency of alcohol use: None Drug Abuse: None Family History: CAD, CVA, DM, Hyperlipidemia, Hypertension, Malignancy, Thyroid Disfunction Patient has homicidal ideation: No - Past Medical History Cardiac Medical History: Reports: Hx Congestive Heart Failure, Hx Hypertension - "Its been good lately" Denies: Hx Coronary Artery Disease, Hx Heart Attack Pulmonary Medical History: Reports: Hx Asthma - only when Denies: Hx Bronchitis, Hx COPD, Hx Pneumonia Neurological Medical History: Denies: Hx Cerebrovascular Accident, Hx Seizures Endocrine Medical History: Denies: Hx Diabetes Mellitus Type 2 Renal/ Medical History: Denies: Hx Peritoneal Dialysis GI Medical History: Denies: Hx Gastritis, Hx Gastroesophageal Reflux Disease Musculoskeletal Medical History: Reports Hx Arthritis - rheumatoid LEFT hip/knee Skin Medical History: Denies Hx MRSA Psychiatric Medical History: Reports: Hx Depression Infectious Medical History: Denies: Hx MRSA Past Surgical History: Reports: Hx Gynecologic Surgery - ovarian surgery, Hx Hysterectomy, Hx Orthopedic Surgery - right foot - Immunizations Immunizations up to date: Yes Hx Diphtheria, Pertussis, Tetanus Vaccination: No - unsure Review of Systems - Review of Systems Constitutional: denies: Fever EENT: denies: Nose congestion Cardiovascular: denies: Dyspnea Respiratory: denies: Stridor Gastrointestinal: denies: Vomiting Genitourinary: denies: Frequency Female Genitourinary: denies: Post menopausal Musculoskeletal: denies: Joint swelling Skin: denies: Change in hair/nails Hematologic/Lymphatic: denies: Easy bleeding Neurological/Psychological: denies: Weakness Physical Exam - Vital signs Vitals: Temp Pulse Resp BP Pulse Ox 98.5 F 97 16 157/96 H 99 03/31/20 21:10 03/31/20 21:10 03/31/20 21:10 03/31/20 21:10 03/31/20 21:10 - General General appearance: Appears well, Alert In distress: None - Respiratory Respiratory status: No respiratory distress Chest status: Nontender Breath sounds: Normal Chest palpation: Normal - Cardiovascular Rhythm: Regular Heart sounds: Normal auscultation - Extremities General lower extremity: Other - Pain elicited with flexion of the left lower extremity pain originates at the left anterior hip/groin radiates down the left thigh to the knee. Tenderness appreciated along the left anterior thigh. No calf tenderness. No lower extremity edema. Neurovascular intact distally with 2+ DP/PT. Gait limited by pain. - Neurological Neuro grossly intact: Yes Cognition: Normal Orientation: AAOx4 - Psychological Associated symptoms: Normal affect, Normal mood - Skin Skin Temperature: Warm Skin Moisture: Dry Skin Color: Normal Course - Re-evaluation Re-evalutation: 03/31/20 22:08 Patient with a history of a sciatic injury. History and physical currently suspicious for myalgia paresthetica. Will obtain DVT study to rule out DVT. If negative will treat for meralgia paresthetica. 03/31/20 22:13 Doppler ordered, I was alerted that it is after 10 PM and the facility does not have Doppler capabilities after 10 PM. Strongly suspect meralgia paresthetica and DVT is low on the differential. We will treat the patient tonight for m eralgia paresthetica and she has agreed to return tomorrow for ultrasound study to rule out DVT. Counseled her and her significant other at length regarding the importance of outpatient follow-up and advised they return here or any ER immediately with any new, persistent or worsening symptoms. She verbalized understood and agreed. - Vital Signs Vital signs: Temp Pulse Resp BP Pulse Ox 98.5 F 97 16 157/96 H 99 03/31/20 21:24 03/31/20 21:10 03/31/20 21:10 03/31/20 21:10 03/31/20 21:10 Discharge - Discharge Clinical Impression: Meralgia paraesthetica Qualifiers: Laterality: left Qualified Code(s): G57.12 - Meralgia paresthetica, left lower limb Condition: Stable Disposition: HOME, SELF-CARE Additional Instructions: See the educational handout given for more information on meralgia paresthetica. Please return here tomorrow for ultrasound of your leg to rule out a deep vein thrombosis. You be given medication for nerve pain. Please return here or any ER immediately with any new, persistent or worsening symptoms. Prescriptions: Gabapentin 300 mg PO TID #15 capsule Forms: Parent Work Note [facility]errals: [facility] [NO LOCAL MD] - Follow up as needed
[2020-03-31 22:41] VITALS: BP 149/86
== END 2020-03-31 22:33 | disposition home or self-care (01) ==
LOC: ER 21:06
DX: G57.12 Meralgia paresthetica, left lower limb (principal); I10 Essential (primary) hypertension; Z87.891 Personal history of nicotine dependence
CPT/HCPCS: 99284; 96372; J1885; J2930

== ENCOUNTER 2020-04-01 15:31 | Emergency (ER) | payer SELFPAY ==
[2020-04-01] MEDS ORDERED: PREDNISONE 20 MG TABLET PO ONE (16:33)
--- NOTE | 2020-04-01 16:34 | ER Document Report ---
HPI - HPI Time Seen by Provider: 04/01/20 16:28 Pain Level: 4 Notes: CHIEF COMPLAINT: Left leg pain HPI: History is obtained from the patient and the chart. A 44-year-old female who has had intermittent pain down the left leg as well as left lower back pain for several months presenting for 1 week of increasing discomfort with occasional tingling down the lateral aspect of the leg. No incontinence of urine or bowel. Patient stands for long. States standing and straightening of the leg make the discomfort worse. Denies medial leg pain denies calf pain or pain behind the knee. Denies swelling of the leg. ROS: See HPI - all other systems were reviewed and are otherwise negative Constitutional: no fever Resp: no SOB, no cough Integumentary: no rash Allergy: no hives Musculoskeletal: + extremity pain or swelling Neurological: + numbness/tingling MEDICATIONS: I agree with the patient medications as charted by the RN. ALLERGIES: I agree with the allergies as charted by the RN. PAST MEDICAL HISTORY/PAST SURGICAL HISTORY: Reviewed and agree as charted by RN. SOCIAL HISTORY: Reviewed and agree as charted by RN. FAMILY HISTORY: No significant familial comorbid conditions directly related to patient complaint EXAM: Reviewed vital signs as charted by RN. CONSTITUTIONAL: Alert and oriented and responds appropriately to questions. Well-appearing; well-nourished HEAD: Normocephalic; atraumatic EYES: Conjunctivae clear, sclerae non-icteric ENT: normal nose; no rhinorrhea; moist mucous membranes NECK: Supple without meningismus CARD: RRR; no murmurs, no clicks, no rubs, no gallops; symmetric distal pulses RESP: Normal chest excursion without splinting or tachypnea; breath sounds clear and equal bilaterally; no wheezes, no rhonchi, no rales, pulse oximetry 98% on room air not hypoxic ABD/GI: Normal bowel sounds; non-distended; soft, non-tender, no rebound, no guarding; no palpable organomegaly or masses. BACK: The back appears normal and is non-tender to palpation, there is no CVA tenderness EXT: Normal ROM in all joints; mild tenderness in the left lower back into the left upper gluteal region and down the lateral thigh of the left leg; no cyanosis, no effusions, no edema SKIN: Normal color for age and race; warm; dry; good turgor; no acute lesions noted NEURO: Moves all extremities equally; Motor and sensory function intact. No saddle anesthesia on exam. DTRs 2+ intact and equal bilateral lower extremities. Strength equal 5/5 bilateral lower extremities. Gait is normal PSYCH: The patient's mood and manner are appropriate. Grooming and personal hygiene are appropriate. MDM: 44-year-old female seen yesterday for left leg pain. Patient apparently was told to come back today for Doppler study as she was here too late yesterday to obtain the Doppler study. Patient's pain is all lateral and comes from the lower back through the lateral aspect of the gluteus consistent with sciatica. Patient was placed on gabapentin yesterday. We will add pain medication and steroids. I discussed this at length with the patient who is declining ultrasound imaging for blood clot at this time. She is aware we cannot completely rule out blood clot as a source of her discomfort without imaging study. Patient verbalizes understanding of this. Patient will follow-up with orthopedics will return for swelling of the leg or medial leg pain - REPRODUCTIVE Reproductive: DENIES: : Past Medical History - Social History Smoking Status: Never Smoker Chew tobacco use (# tins/day): No Frequency of alcohol use: None Drug Abuse: None Family History: CAD, CVA, DM, Hyperlipidemia, Hypertension, Malignancy, Thyroid Disfunction Patient has homicidal ideation: No - Past Medical History Cardiac Medical History: Reports: Hx Congestive Heart Failure, Hx Hypertension - "Its been good lately" Denies: Hx Coronary Artery Disease, Hx Heart Attack Pulmonary Medical History: Reports: Hx Asthma - only when Denies: Hx Bronchitis, Hx COPD, Hx Pneumonia Neurological Medical History: Denies: Hx Cerebrovascular Accident, Hx Seizures Endocrine Medical History: Denies: Hx Diabetes Mellitus Type 2 Renal/ Medical History: Denies: Hx Peritoneal Dialysis GI Medical History: Denies: Hx Gastritis, Hx Gastroesophageal Reflux Disease Musculoskeletal Medical History: Reports Hx Arthritis - rheumatoid LEFT hip/knee Skin Medical History: Denies Hx MRSA Psychiatric Medical History: Reports: Hx Depression Infectious Medical History: Denies: Hx MRSA Past Surgical History: Reports: Hx Gynecologic Surgery - ovarian surgery, Hx Hysterectomy, Hx Orthopedic Surgery - right foot - Immunizations Immunizations up to date: Yes Hx Diphtheria, Pertussis, Tetanus Vaccination: No - unsure Vertical Provider Document - INFECTION CONTROL TRAVEL OUTSIDE OF THE [place] IN LAST 30 DAYS: No Discharge - Discharge Clinical Impression: Sciatica Qualifiers: Laterality: left Qualified Code(s): M54.32 - Sciatica, left side Condition: Stable Disposition: HOME, SELF-CARE Instructions: Sciatica ([facility]) Additional Instructions: Continue gabapentin as previously prescribed. Pain medications as prescribed no driving if taking narcotics for pain. You are given today's dose of your steroid in the emergency department to start the prescription tomorrow. Follow- up with orthopedics for further evaluation and treatment of the left leg discomfort call for appointment. If you develop swelling of the leg or medial leg pain as discussed return for reevaluation. You declined ultrasound imaging today to rule out a blood clot Prescriptions: Prednisone [Deltasone 20 mg Tablet] 2 tab PO DAILY 5 Days #10 tablet Hydrocodone/Acetaminophen [Ulm 5-325 mg Tablet] 1 tab PO Q4 PRN #15 tablet PRN Reason: Referrals: ALLEGRA COSBY DO [ACTIVE STAFF] - Follow up as needed
[2020-04-01 16:49] VITALS: BP 159/93
== END 2020-04-01 16:54 | disposition home or self-care (01) ==
LOC: ER 15:31
DX: M54.32 Sciatica, left side (principal); M79.605 Pain in left leg; R20.0 Anesthesia of skin; I50.9 Heart failure, unspecified; I11.0 Hypertensive heart disease with heart failure; J45.909 Unspecified asthma, uncomplicated
CPT/HCPCS: 99284; J7512

== ENCOUNTER 2020-05-08 20:20 | Emergency (ER) | payer SELFPAY ==
--- NOTE | 2020-05-08 21:06 | ER Document Report ---
ED Medical Screen (RME) - General Chief Complaint: Cough Stated Complaint: Cough getting worse Time Seen by Provider: 05/08/20 20:58 Mode of Arrival: Ambulatory Information source: Patient Notes: 44-year-old female presented to ED for cough that she has had off and on for 2 months. She states it has been getting worse for the last week. 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 She states she does have CHF and high blood pressure. The patient was evaluated during the global Covid 19 pandemic, and that diagnosis was susp ected/considered upon their initial presentation. Their evaluation, treatment and testing was consistent with current guidelines for patients who present with complaints or symptoms that may be related to Covid 19. I have greeted and performed a rapid initial assessment of this patient. A comprehensive ED assessment and evaluation of the patient, analysis of test results and completion of medical decision making process will be conducted by an additional ED providers. TRAVEL OUTSIDE OF THE [place] 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 Denies: Hx Diabetes Mellitus Type 2 Renal/ Medical History: Reports: Hx Ovarian Cysts, Other - Fibroid cyst Malignancy Medical History: Reports: None GI Medical History: Reports: None Musculoskeltal Medical History: Reports Hx Arthritis - rheumatoid LEFT hip/knee Skin Medical History: Reports None Psychiatric Medical History: Reports: Hx Depression Traumatic Medical History: Reports: None Infectious Medical History: Reports: None Past Surgical History: Reports: Hx Gynecologic Surgery - ovarian surgery, Hx Hysterectomy, Hx Orthopedic Surgery - right foot - Immunizations Immunizations up to date: Yes Hx Diphtheria, Pertussis, Tetanus Vaccination: No - unsure History of Pneumococcal Vaccine: No History of Influenza Vaccine for 03/2019 - 08/2019 Season: No Physical Exam - Vital signs Vitals: Temp Pulse Resp BP Pulse Ox 99.1 F 87 19 175/97 H 100 05/08/20 20:35 05/08/20 20:35 05/08/20 20:35 05/08/20 20:35 05/08/20 20:35 Course - Vital Signs Vital signs: Temp Pulse Resp BP Pulse Ox 99.1 F 87 19 175/97 H 100 05/08/20 20:35 05/08/20 20:35 05/08/20 20:35 05/08/20 20:35 05/08/20 20:35
--- NOTE | 2020-05-08 23:09 | RADIOLOGY REPORT (SQ) ---
EXAM DESCRIPTION: Site: CHEST SINGLE VIEW RP: XR CHEST 1 VIEW CLINICAL HISTORY: 44 years Female; cough congest; COMPARISON: 04/25/2015 FINDINGS: Lungs: Lungs are clear, with no focal infiltrate, pneumothorax, or pleural effusion. Mediastinum: Mediastinum is within normal limits for this positioning. Bones: Bony structures are unremarkable. IMPRESSION: 1. No acute pulmonary findings.
[2020-05-08 23:29] LABS: A TYPE INFLUENZA AG NEGATIVE (NEGATIVE); B INFLUENZA AG NEGATIVE (NEGATIVE)
[2020-05-08 23:54] VITALS: BP 153/92
[2020-05-09] MEDS ORDERED: DEXAMETHASONE SOD PHOS INJ 10 MG/1 ML VIAL IM ONE (00:18)
--- NOTE | 2020-05-09 00:21 | ER Document Report ---
ED Respiratory Problem - General Chief Complaint: Cough Stated Complaint: Cough getting worse Time Seen by Provider: 05/08/20 20:58 Mode of Arrival: Ambulatory Notes: Patient is a 44-year-old female who comes emergency department for chief complaint of a cough that she has had intermittently for the past couple of months. She states that over the last week it has significantly come back and worsened. Cough is nonproductive. She denies sore throat, congestion, fever/chills, chest pain, dizziness, passing out. She denies smoking. She states she has been told she has "CHF" although she states she is not on medi cations for this, she denies history of high blood pressure, she denies CAD, she states that she does not "see a doctor unless I have to". She denies any daily medications. Patient states he was exposed to one of her employees at [employer] who was sent home because their daughter was positive for COVID-19. Patient has not had the influenza vaccine. TRAVEL OUTSIDE OF THE [place] 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 Denies: Hx Diabetes Mellitus Type 2 Renal/ Medical History: Reports: Hx Ovarian Cysts, Other - Fibroid cyst Malignancy Medical History: Reports: None GI Medical History: Reports: None Musculoskeletal Medical History: Reports Hx Arthritis - rheumatoid LEFT hip/knee Skin Medical History: Reports None Psychiatric Medical History: Reports: Hx Depression Traumatic Medical History: Reports: None Infectious Medical History: Reports: None Past Surgical History: Reports: Hx Gynecologic Surgery - ovarian surgery, Hx Hysterectomy, Hx Orthopedic Surgery - right foot - Immunizations Immunizations up to date: Yes Hx Diphtheria, Pertussis, Tetanus Vaccination: No - unsure History of Pneumococcal Vaccine: No Review of Systems - Review of Systems Constitutional: No symptoms reported EENT: No symptoms reported Cardiovascular: No symptoms reported Respiratory: See HPI Gastrointestinal: No symptoms reported Genitourinary: No symptoms reported Female Genitourinary: No symptoms reported Musculoskeletal: No symptoms reported Skin: No symptoms reported Hematologic/Lymphatic: No symptoms reported Neurological/Psychological: No symptoms reported Physical Exam - Vital signs Vitals: Temp Pulse Resp BP Pulse Ox 99.1 F 87 19 175/97 H 100 05/08/20 20:35 05/08/20 20:35 05/08/20 20:35 05/08/20 20:35 05/08/20 20:35 - Notes Notes: GENERAL: Alert, interacts well. No acute distress. HEAD: Normocephalic, atraumatic. EYES: Pupils equal, round, and reactive to light. Extraocular movements intact. ENT: Oral mucosa moist, tongue midline. Oropharynx unremarkable. Airway patent. Nares patent, sinuses non-tender, ear canals unremarkable, TM's intact. NECK: Full range of motion. Supple. Trachea midline. No lymphadenopathy. LUNGS: Clear to auscultation bilaterally, no wheezes, rales, or rhonchi. No respiratory distress. Non-tender chest wall. HEART: Regular rate and rhythm. No murmur ABDOMEN: Soft, non-tender. Non-distended. Bowel sounds present in all 4 quadrants. GENITOURINARY: Deferred EXTREMITIES: Moves all 4 extremities spontaneously. No edema, normal radial and dorsalis pedis pulses bilaterally. No cyanosis. BACK: no cervical, thoracic, lumbar midline tenderness. No saddle anesthesia, normal distal neurovascular exam. Moves all extremities in full range of motion. NEUROLOGICAL: Alert and oriented x3. Normal speech. Cranial nerves II through XII grossly intact. Strength 5/5 in all extremities. PSYCH: Normal affect, normal mood. SKIN: Warm, dry, normal turgor. No rashes or lesions noted. Course - Re-evaluation Re-evalutation: Patient with occasional nonproductive cough but no other symptoms reported or noted on exam. Exam is unremarkable with clear lungs, no tachypnea, no signs of distress. No hypoxia, tachycardia, or fever. Influenza negative. Chest x-ray negative. I suspect patient has bronchitis. No lower extremity swelling, no other concerning findings noted. Discussed with patient, she is requesting COVID-19 testing and work release. I discussed patient's hypertension, this is improved on recheck, she states that it is high when she gets "annoyed and has to wait like tonight". Highly recommended she have this rechecked with primary care. She has no lower extremity swelling, rales on exam, or vascular congestion on x-ray. Provided with symptom management after discussion of this as well, discussed follow-up and return precautions. Patient states appreciation and agreement. Stable and well-appearing at time of discharge. - Vital Signs Vital signs: Temp Pulse Resp BP Pulse Ox 98.5 F 89 19 153/92 H 100 05/08/20 23:53 05/08/20 23:53 05/08/20 20:35 05/08/20 23:53 05/08/20 23:53 Discharge - Discharge Clinical Impression: Nonproductive cough, Person under investigation for COVID-19 Upper respiratory infection Qualifiers: URI type: unspecified URI Qualified Code(s): J06.9 - Acute upper respiratory infection, unspecified Condition: Stable Disposition: HOME, SELF-CARE Instructions: COVID-19 Guidance for Persons Under Investigation Additional Instructions: Your chest x-ray is normal, based on your symptoms and your evaluation I suspect that you have bronchitis. This should simply resolve with time, you have been given additional medication to help speed up the process, use the albuterol inhaler as prescribed if needed for shortness of breath and cough, use the Tessalon if needed for cough. You can take additional [id number] medications if desired. Drink plenty of fluids and rest. Please quarantine while you are awaiting your COVID-19 test results, you will be contacted with results, see the form for additional instructions. Return if you worsen including difficulty breathing, spiking fever, chest pain, passing out, or any other concerning or worsening symptoms. Prescriptions: Benzonatate [Tessalon Perles 100 mg Capsule] 100 mg PO Q8HP PRN #20 capsule PRN Reason: Albuterol Sulfate [Proair HFA Inhalation Aerosol 8.5 gm MDI] 2 puff IH Q4H PRN #1 mdi PRN Reason: Forms: Return to Work, Elevated Blood Pressure
[2020-05-09] MEDS: DEXAMETHASONE SOD PHOSPHATE INJ 4 MG/1 ML VIAL ONE ×2 (00:58→01:04)
== END 2020-05-09 01:30 | disposition home or self-care (01) ==
LOC: ER 20:20
DX: J06.9 Acute upper respiratory infection, unspecified (principal); R05 Cough; I10 Essential (primary) hypertension; Z20.828 Contact with and (suspected) exposure to other viral communicable diseases
CPT/HCPCS: 99284; 96372; 87635; 87804; 71045; J1100; C9803